=== PATIENT | female | born 1990 | race African-American/Black ===

== ENCOUNTER 2018-06-04 15:06 | Inpatient (IN) | payer OTHER, SELFPAY ==
[2018-06-04 15:54] VITALS: BMI 44.9
[2018-06-04] MEDS ORDERED: Labetalol HCl 100 MG/20 ML VIAL SLOW IVP PRN (16:29)
[2018-06-04 17:04] LABS: Hemoglobin 10.2 g/dL (12.0-16.0); Mean Corpuscular HGB CONC 34.1 g/dL (32.0-36.0); Mean Corpuscular Volume 79.1 fL (78.0-98.0); Mean Platelet Volume 8.3 fL (7.4-10.4); Platelet Count 183 thou/uL (130-400); RBC Distribution Width 13.8 % (11.5-14.5); Red Blood Cell (RBC) Count 3.76 mill/uL (4.20-5.40); White Blood Cell (WBC) Count 5.1 thou/uL (4.8-10.8)
[2018-06-04 17:23] LABS: ALT (SGPT) 10 U/L (8-55); AST (SGOT) 20 U/L (5-34); Alkaline Phosphatase 245 U/L (40-150); Anion Gap 11 mmol/L (10-20); BUN (Urea Nitrogen) 7 mg/dL (7.0-18.7); Bilirubin, Total 0.5 mg/dL (0.2-1.2); Calc. Creatinine Clearance 196 mL/min (70-130); Calcium 8.8 mg/dL (7.8-10.44); Carbon Dioxide 22 mmol/L (22-29); Chloride 108 mmol/L (98-107); Estimated GFR-MDRD Greater than 90; Glucose 75 mg/dL (70-105); LDH 233 U/L (125-220); Potassium 3.9 mmol/L (3.5-5.1); Sodium 137 mmol/L (136-145); Uric Acid 5.8 mg/dL (2.6-6.0)
[2018-06-04] MEDS ORDERED: Ondansetron HCl/PF 4 MG/2 ML Vial IVP PRN ×2 (17:50→20:50)
[2018-06-04] MEDS ORDERED: Calcium Gluc 4.6 MEQ/10 ML (100 MG/ML) SLOW IVP PRN (17:51)
[2018-06-04] MEDS ORDERED: Magnesium Sulfate 20 GM/WATER 500 ML BAG IVPB SCH (18:00)
[2018-06-04] MEDS ORDERED: Lactated Ringer's 1,000 ML IV SCH (18:00)
[2018-06-04] MEDS ORDERED: Magnesium Sulfate 20 gm/500 ml 20 GM/500 ML BAG IVPB SCH (18:00)
[2018-06-04] MEDS ORDERED: CEFAZOLIN/Water 2 GM/20 ML SYRINGE SLOW IVP SCH (18:15)
[2018-06-04] MEDS ORDERED: Bicitra 30 ML UDCUP PO SCH (18:15)
[2018-06-04 18:38] LABS: Syphilis Antibody Nonreactive (Nonreactive); Syphilis Antibody Index 0.04 S/CO (<1.00 Non-Reactive)
[2018-06-04 18:39] LABS: HIV (1/2) Antibody/Antigen Non-Reactive (NonReactive); Hep B Surf Ag Non-Reactive S/CO (NonReactive)
[2018-06-04] MEDS ORDERED: Oxytocin 10 UNITS/ML VIAL ONE ×2 (18:55→20:01)
[2018-06-04] MEDS ORDERED: Lidocaine 1% PF 5 ML VIAL ONE (18:55)
[2018-06-04] MEDS ORDERED: Bupivacaine 0.75% W/DEXTROSE 8.25% 2 ML AMP ONE (18:55)
[2018-06-04] MEDS ORDERED: PHENYLEPHRINE-NS 100 MCG/ML 10 ML SYRINGE ONE (18:55)
[2018-06-04] MEDS ORDERED: Ketorolac Tromethamine 30 MG/ML VIAL ONE (18:55)
[2018-06-04] MEDS ORDERED: Ondansetron HCl/PF 4 MG/2 ML Vial ONE (18:55)
[2018-06-04] MEDS ORDERED: Morphine PF 1 MG/ML SYR ONE (18:56)
[2018-06-04] MEDS: Lactated Ringer's 1,000 ML IV SCH (19:00)
[2018-06-04] MEDS ORDERED: Labetalol HCl 100 MG/20 ML VIAL ONE (19:16)
[2018-06-04] MEDS ORDERED: Carboprost 250 MCG/ML AMP ONE (20:02)
[2018-06-04] MEDS ORDERED: Fentanyl 100 MCG/2 ML VIAL ONE (20:27)
--- NOTE | 2018-06-04 20:30 | HP ---
DATE OF ENCOUNTER: 06/04/2018 PRIMARY HALAL BUTCHER: Dr. Aurelio Painting. CHIEF COMPLAINT: Elevated blood pressures. HISTORY OF PRESENT ILLNESS: The patient is a 28-year-old female referred from clinic for blood press ure evaluation. The patient reports that in the clinic, she had blood pressures as high as the 180s. She reports a mild headache when she is on her side. Otherwise, denies any headache, denies chest pain, shortness of breath. Denies recent illness, fever, or fall. Denies nausea, vomiting, diarrhea , or constipation. Denies vaginal bleeding, leakage of fluid. Denies any new rashes. Denies hip pr oblems or knee problems. PAST MEDICAL HISTORY: Negative. PAST SURGICAL HISTORY: She has had 1 prior and was hospitalized for several weeks for pree clampsia. ALLERGIES: No known drug allergies. MEDICATIONS: vitamins. SOCIAL HISTORY: Denies drug, alcohol or tobacco use. PHYSICAL EXAMINATION: VITAL SIGNS: Initial blood pressure 189/100 and has ranged from 120s to 180s systolic and 70s to 90s diastolic, heart rate in the 70s to 80s, satting 100% on room air, respiratory rate 18-20. GENERAL: She appears to be in no acute distress. She is alert and oriented, cooperative and pleasan t to interact with. HEAD: Normocephalic, atraumatic. LUNGS: Clear to auscultation bilaterally. CARDIOVASCULAR: Heart has regular rate and rhythm. ABDOMEN: Soft and nontender, no right upper quadrant tenderness to palpation. EXTREMITIES: Nontender and edematous, 1+ edema. HEART TRACING: Fetus is in the 140s with moderate long-term variability, positive 15 x 15 acce lerations, no decelerations. Tocometer shows some irritability, but no contraction pattern. LABORATORY DATA: White count of 5.1, hemoglobin of 10.2, hematocrit 29.8, platelets 193,000. Sodium 137, potassium 3.9, chloride 108, BUN 7, creatinine 0.8. Uric acid of 5.8, AST of 20, ALT of 10. L DH of 233. Urine protein is pending, but was reported 2+ in clinic. ASSESSMENT AND PLAN: The patient is a 28-year-old female with an intrauterine at 36 weeks and 5 days, presenting with severe range blood pressures recurrent over the last hour or two. The pa rohit has a history of preeclampsia with her previous requiring hospitalization for several weeks. The patient is a prior section, desires a repeat this with Dr. Painting findings h ere with my evaluation. The patient has had nothing to eat since earlier this morning at 11:00 and p rogelio is to move forward with . Her primary OB will be coming for delivery.
[2018-06-04] MEDS ORDERED: HYDROmorphone 2 MG/ML VIAL SLOW IVP PRN (20:50)
[2018-06-04] MEDS ORDERED: Meperidine HCl/PF 25 MG/ML VIAL SLOW IVP PRN (20:50)
[2018-06-04] MEDS ORDERED: Ketorolac Tromethamine 30 MG/ML VIAL IVP SCH (21:00)
[2018-06-04] MEDS ORDERED: Varicella virus, LIVE 0.5 ML VIAL SC ONE (21:13)
[2018-06-04] MEDS ORDERED: Adacel (T-DAP) 0.5 ML VIAL IM ONE (21:13)
[2018-06-04] MEDS ORDERED: Bisacodyl 10 MG SUPP PR PRN (21:13)
[2018-06-04] MEDS: Magnesium Sulfate 20 gm/500 ml 20 GM/500 ML BAG IVPB SCH (21:20)
[2018-06-04] MEDS: Docusate Calcium (SURFAK) 240 MG CAP PO SCH (21:34)
[2018-06-05] MEDS: HYDROcodone/Acetaminophen 5/325 mg Tablet PO PRN ×2 (03:50→18:45)
[2018-06-05] MEDS: Lactated Ringer's 1,000 ML IV SCH ×2 (05:05→17:09)
[2018-06-05] MEDS: Magnesium Sulfate 20 gm/500 ml 20 GM/500 ML BAG IVPB SCH ×2 (05:42→16:05)
[2018-06-05] MEDS: Ibuprofen 800 MG TAB PO SCH ×4 (05:49→21:39)
[2018-06-05] MEDS: Docusate Calcium (SURFAK) 240 MG CAP PO SCH (17:36)
--- NOTE | 2018-06-05 19:47 | PDOC.PP ---
Post Progress Note PO intake tolerated: yes Vital Signs (12 hours) Temp Pulse Resp 06/05/18 08:00 98.0 F 86 18 Weight Weight 262 lb - Physical Examination General: NAD Cardiovascular: no m/r/g Respiratory: clear to auscultation bilaterally Abdominal: no distention, appropriately TTP Extremities: negative homans (B) Skin: CS incision dry & intact, no rash Neurological: no gross focal deficits Psychiatric: A&Ox3, normal affect (Doing very well. Will DC Mahnesium and transition to po Nifedipine for BP Controll. Normal post care after that.) Result Diagrams: 06/04/18 16:50 06/04/18 16:50 Additional Labs: Post Labs Blood Type B POSITIVE 06/04/18 17:45 Hep Bs Antigen Non-Reactive S/CO (NonReactive) 06/04/18 17:45
[2018-06-05] MEDS ORDERED: NIFEdipine XL 60 MG TAB PO SCH (21:30)
[2018-06-06] MEDS: Lactated Ringer's 1,000 ML IV SCH ×4 (03:19→15:38)
[2018-06-06] MEDS: Docusate Calcium (SURFAK) 240 MG CAP PO SCH ×3 (03:23→21:42)
[2018-06-06] MEDS: HYDROcodone/Acetaminophen 5/325 mg Tablet PO PRN ×3 (03:55→23:28)
[2018-06-06] MEDS: Ibuprofen 800 MG TAB PO SCH ×3 (05:41→21:42)
[2018-06-06] MEDS: NIFEdipine XL 60 MG TAB PO SCH (08:59)
--- NOTE | 2018-06-06 16:16 | PDOC.PP ---
Post Progress Note Post Day #: Patient is doing very well, ambulating well, regular diet, no complaints. PO intake tolerated: yes Flatus: yes Ambulation: yes Vital Signs (12 hours) Temp Pulse Resp BP BP 06/06/18 12:13 98.0 F 103 H 20 138/79 06/06/18 08:59 90 144/85 H 06/06/18 08:19 98.1 F 90 20 144/85 H 06/06/18 07:55 98.1 F 90 20 Weight Weight 262 lb - Physical Examination General: NAD Cardiovascular: no m/r/g, RRR Respiratory: clear to auscultation bilaterally, non-labored breathing Abdominal: lochia, no distention, appropriately TTP Extremities: negative homans (B) Skin: CS incision dry & intact, no rash Neurological: no gross focal deficits Psychiatric: A&Ox3, normal affect Result Diagrams: 06/04/18 16:50 06/04/18 16:50 Additional Labs: Post Labs Blood Type B POSITIVE 06/04/18 17:45 Hep Bs Antigen Non-Reactive S/CO (NonReactive) 06/04/18 17:45
--- NOTE | 2018-06-06 18:51 | OP ---
DATE OF PROCEDURE: 06/04/2018 PREOPERATIVE DIAGNOSES: 1. Severe preeclampsia. 2. Intrauterine at 36 weeks and 5 days with gestational hypertension, obesity, previous ce sarean section, breech presentation. POSTOPERATIVE DIAGNOSES: 1. Severe preeclampsia. 2. Intrauterine at 36 weeks and 5 days with gestational hypertension, obesity, previous ce sarean section, breech presentation. PROCEDURE: Repeat low-transverse section. SURGEON: Aurelio Painting MD HOSPITAL PERSONNEL DIRECTOR: Dr. Wheatley. QUANTITATIVE BLOOD LOSS: 790 mL. FINDINGS: Viable male weighing 3090 grams or 6 pounds 13 ounces. Apgars we have 6 at 1 minut e, 5 at 5 minutes, and 8 at 10 minutes. COMPLICATIONS: None. DETAILS OF THE PROCEDURE: The patient was consented and taken back to the operating room where spina l anesthesia was found to be adequate. She was then prepped and draped in the normal sterile fashion . A time out was performed by the entire operative team. The incision was then marked with a marking pen tested using sharp pickups. An incision was then made with a scalpel. The incision was carried through the adipose tissue down to the underlying rectus fascia using both sharp dissection as well as cautery. Once the fascia was identified, it was incised in the midline and then the fascial incis ion was carried through in both lateral directions using sharp as well as cautery dissection techniqu es. Next, the superior aspect of the rectus fascia was grasped with 2 Jethro clamps which was tented up and the rectus muscles were dissected off using blunt dissection as well as cautery dissection. Similarly, the inferior aspect of the fascial incision was grasped with 2 Jethro clamps, tented up an d the rectus muscles were dissected off bluntly as well as sharply. Next, the rectus muscles were se parated in the midline and the peritoneum identified. The peritoneum was then carefully grasped with two hemostats and entered sharply. The peritoneal incision was extended superiorly and inferiorly a nd bladder blade was placed in the lower abdomen. At this point, the uterus was identified and the b ladder flap was then developed using pickups with teeth as well as Metzenbaum scissors in both latera l directions. The bladder flap was then dissected downwards using the paddle dyeing machine operator's finger as well as M etzenbaum scissors. The bladder blade was replaced. The lower uterine segment was then identified a nd entered sharply using a clean scalpel. The uterine incision was then dissected downwards until th in layer of muscle remained and this was entered bluntly using a hemostat to avoid any injury to the baby. The uterine incision was then stretched using two fingers in both lateral directions. An amniotomy was performed artificially using a hemostat and the baby was delivered using fundal pres sure in a gentle fashion. Once out, the baby's mouth and nose were bulb suctioned, cord clamped and cut, and the baby was handed to waiting attendants. Next, the uterus was exteriorized, cleared of al l clots and debris and the uterine incision was repaired with #1 Monocryl in a running locking fashio n. A second suture of the same type was used to obtain complete hemostasis at the uterine incision. The bladder flap was reapproximated using 3-0 Monocryl. Next, patient's left and right adnexa were inspected and appeared to be within normal limits. The posterior cul-de-sac was blotted dry and hemo stasis assured. One more look at the uterine incision demonstrated hemostasis. Next, the uterus was replaced back within the abdomen. The peritoneum was reapproximated using 2-0 Monocryl without diff iculty. The rectus muscles were then allowed to come back together and 0 chromic was used to aid in reapproximation of the muscle as necessary. The rectus fascia was then reapproximated in a running f ashion using 0 Vicryl suture. The adipose tissue was then examined and appeared to be well approxima heidi without any obvious separations. Finally, the skin was reapproximated with 3-0 Monocryl on a Martin th needle without difficulty and Dermabond adhesive was applied to the skin. Once the glue was dry, the drapes were removed and the patient was transferred to an ambulatory bed where she was taken to [facility] awake and in stable condition. Sponge, lap, and needle counts were correct x3.
[2018-06-07] MEDS: Lactated Ringer's 1,000 ML IV SCH ×3 (05:31→16:04)
[2018-06-07] MEDS: Ibuprofen 800 MG TAB PO SCH ×3 (05:33→21:05)
[2018-06-07] MEDS: NIFEdipine XL 60 MG TAB PO SCH (10:21)
[2018-06-07] MEDS: Docusate Calcium (SURFAK) 240 MG CAP PO SCH ×2 (10:22→21:05)
[2018-06-07] MEDS: HYDROcodone/Acetaminophen 5/325 mg Tablet PO PRN ×2 (12:14→21:05)
[2018-06-08] MEDS: Lactated Ringer's 1,000 ML IV SCH ×2 (05:07→09:45)
[2018-06-08 08:19] VITALS: BP 145/89; TEMP 98.5
[2018-06-08] MEDS: NIFEdipine XL 60 MG TAB PO SCH (09:29)
[2018-06-08] MEDS: Ibuprofen 800 MG TAB PO SCH (09:29)
[2018-06-08] MEDS: Docusate Calcium (SURFAK) 240 MG CAP PO SCH (09:29)
== END 2018-06-08 12:50 | disposition home or self-care (01) | DRG 766 ==
LOC: L&D/OP 15:06 → L&D 18:17 → 3SW 06-05 22:46
PROVIDERS: ADMIT Obstetrics & Gynecology; ATTEND Obstetrics & Gynecology
PROC: 10D00Z1 Extraction of Products of Conception, Low, Open Approach (ICD-10-PCS; principal; 2018-06-04)
DX: O14.14 Severe pre-eclampsia complicating childbirth (principal); Z3A.36 36 weeks gestation of pregnancy; O34.211 Maternal care for low transverse scar from previous cesarean delivery; Z37.0 Single live birth
CPT/HCPCS: 36415; 51702; 80053; 81003; 82570; 83615; 84156; 84550; 85027; 86780; 86850; 86900; 86901; 87340; 87389; 90715; 99285; J0131; J1885; J2001; J2274; J2405; J2590; J3010; J3475; J3490

== ENCOUNTER 2023-05-24 11:04 | Outpatient (CLI) | payer BC, OTHER | END 2023-05-24 11:05 | disposition home or self-care (01) | LOC: DTY/OP 11:04 | PROVIDERS: ATTEND Surgery | DX: E66.01 Morbid (severe) obesity due to excess calories (principal) | CPT/HCPCS: 97802 ==

== ENCOUNTER 2023-08-09 07:50 | Outpatient (CLI) | payer BC ==
[2023-08-09 08:38] LABS: #Eosinphils 0.1 10x3/uL (0.0-0.5); #Monocytes 0.4 10x3/uL (0.0-1.1); #Neutrophils 2.8 10x3/uL (1.5-8.4); %Basophils 0.8 % (0.0-2.0); %Eosinophils 1.2 % (0.0-6.0); %Lymphocytes 34.1 % (18.0-47.0); %Monocytes 8.8 % (0.0-10.0); %Neutrophils 54.9 % (40.0-75.0); Hematocrit 39.7 % (34.9-44.5); Hemoglobin 12.7 g/dL (12.0-15.5); Mean Corpuscular Hemoglobin 25.2 pg (27.0-33.0); Mean Corpuscular Volume 78.9 fl (81.6-98.3); Mean Platelet Volume 9.5 fl (7.4-10.4); Platelet Count 328 10x3/uL (150-450); RBC Distribution Width 16.2 % (11.5-14.5); Red Blood Cell (RBC) Count 5.03 10x6/uL (3.90-5.03)
[2023-08-09 08:45] LABS: Anion Gap 15 mmol/L (10-20); BUN (Urea Nitrogen) 9 mg/dL (7.0-18.7); Calc. Creatinine Clearance 0 mL/min (70-130); Calcium 9.5 mg/dL (7.8-10.44); Carbon Dioxide 23 mmol/L (22-29); Chloride 106 mmol/L (98-107); Estimated GFR 97; Glucose 105 mg/dL (70-105); Potassium 4.1 mmol/L (3.5-5.1); Sodium 140 mmol/L (136-145)
== END 2023-08-09 07:51 | disposition home or self-care (01) ==
LOC: LABBT 07:50
PROVIDERS: ATTEND Surgery
DX: Z01.812 Encounter for preprocedural laboratory examination (principal); E66.01 Morbid (severe) obesity due to excess calories
CPT/HCPCS: 80048; 85025

== ENCOUNTER 2023-08-09 08:00 | Inpatient (IN) | payer BC ==
[2023-08-09 08:18] VITALS: BMI 41.8
[2023-08-22] MEDS ORDERED: Bupivacaine 0.25% HCL 30 ML VIAL ONE (06:52)
[2023-08-22] MEDS ORDERED: EPINEPHrine 1 MG/ML VIAL ONE (06:52)
[2023-08-22] MEDS ORDERED: Propofol 500 MG/50 ML VIAL ONE (07:00)
[2023-08-22] MEDS ORDERED: fentaNYL PF 100 MCG/2 ML SYRINGE ONE (07:03)
[2023-08-22] MEDS ORDERED: Ketamine In 0.9 % NaCl 50 MG/5 ML SYRINGE ONE (07:03)
[2023-08-22] MEDS ORDERED: Rocuronium Bromide 10 MG/ML (10ML VIAL) ONE ×2 (07:04→07:15)
[2023-08-22] MEDS ORDERED: Lidocaine 1% PF 5 ML VIAL ONE ×2 (07:04→07:15)
[2023-08-22] MEDS ORDERED: PROPOFOL 20 ML ONE (07:04)
[2023-08-22] MEDS ORDERED: Ondansetron PF 4 MG/2 ML Vial ONE ×3 (07:15→16:04)
[2023-08-22] MEDS ORDERED: Ketorolac Tromethamine 30 MG/ML VIAL ONE ×2 (07:15→09:10)
[2023-08-22] MEDS ORDERED: PROPOFOL 200 MG/20 ML VIAL ONE (07:15)
[2023-08-22] MEDS ORDERED: Esmolol 100 MG/10 ML VIAL ONE ×2 (07:15→08:55)
[2023-08-22] MEDS ORDERED: Dexamethasone 20 MG/5 ML VIAL ONE ×2 (07:15→08:30)
[2023-08-22] MEDS ORDERED: PHENYLEPHRINE-NS 100 MCG/ML 10 ML SYRINGE ONE ×2 (07:15→08:44)
[2023-08-22] MEDS ORDERED: Scopolamine 1 mg/72 hour Patch ONE (07:22)
[2023-08-22] MEDS ORDERED: CEFAZOLIN 2 GM VIAL ONE (08:00)
[2023-08-22] MEDS ORDERED: Sodium Chloride 0.9% 100 ML ONE ×2 (08:01→09:21)
[2023-08-22] MEDS ORDERED: Glycopyrrolate 0.2 MG/ML 5 ML SYRINGE ONE (08:33)
[2023-08-22] MEDS ORDERED: SUGAMMADEX SODIUM 200 MG/2 ML VIAL ONE (09:10)
[2023-08-22] MEDS ORDERED: Naloxone HCl 0.4 mg/ml Vial IV PRN (09:11)
[2023-08-22] MEDS ORDERED: diphenhydrAMINE 50 MG/ML VIAL IVP PRN ×2 (09:11→10:10)
[2023-08-22] MEDS ORDERED: diphenhydrAMINE 25 MG CAP PO PRN (09:11)
[2023-08-22] MEDS ORDERED: diphenhydrAMINE 50 MG/ML VIAL IM PRN (09:11)
[2023-08-22] MEDS ORDERED: Ondansetron HCl/PF 4 MG/2 ML Vial IVP PRN (09:11)
[2023-08-22] MEDS ORDERED: Promethazine HCl 25 MG/ML VIAL IM PRN ×3 (09:11→10:10)
[2023-08-22] MEDS ORDERED: FENTANYL 500 MCG/10 ML VIAL 2,000 MCG in Sodium Chloride 0.9% 60 ML IV PRN (09:11)
[2023-08-22] MEDS ORDERED: Ondansetron PF 4 MG/2 ML Vial IVP PRN ×2 (09:11→10:10)
[2023-08-22] MEDS ORDERED: Communication Order-Pharmacy FS SCH (09:15)
[2023-08-22] MEDS ORDERED: Dexmedetomidine 200 MCG/2 ML VIAL ONE (09:20)
[2023-08-22] MEDS ORDERED: fentaNYL 50 mcg/mL 1 mL Vial ONE (09:23)
[2023-08-22] MEDS ORDERED: Glucagon 1 MG/ML KIT IM PRN (10:10)
[2023-08-22] MEDS ORDERED: hydrALAZINE 20 MG/ML VIAL SLOW IVP PRN (10:10)
[2023-08-22] MEDS ORDERED: Ipratropium/Albuterol 3 ML NEB NEB PRN (10:10)
[2023-08-22] MEDS ORDERED: Hydrocodone-Acetamin 15 ML UDCUP PO PRN (10:10)
[2023-08-22] MEDS ORDERED: Dextrose 5% in Water 1,000 ML IV PRN (10:10)
[2023-08-22] MEDS ORDERED: Dextrose 50% Abboject 50 ML SYRINGE SLOW IVP PRN (10:10)
[2023-08-22] MEDS ORDERED: D5 1/2 NS w/20 mEq KCL 1,000 ML ONE (11:48)
[2023-08-22] MEDS: D5 1/2 NS w/20 mEq KCL 1,000 ML IV SCH ×3 (11:50→19:34)
[2023-08-22] MEDS ORDERED: FLU VACC QS2023-24(6MOS UP)/PF 60 MCG/0.5 ML SYRINGE IM ONE (17:15)
[2023-08-23 05:26] LABS: #Monocytes 0.8 thou/uL (0.11-0.59); #Neutrophils 10.7 thou/uL (1.40-6.50); %Basophils 0.2 % (0.0-1.0); %Eosinophils 0.3 % (0.0-10.0); %Lymphocytes 13.1 % (21.0-51.0); %Monocytes 5.9 % (0.0-10.0); %Neutrophils 80.1 % (42.0-75.0); Hematocrit 34.8 % (36.0-47.0); Hemoglobin 11.2 g/dL (12.0-16.0); Mean Corpuscular HGB CONC 32.2 g/dL (32.0-36.0); Mean Corpuscular Hemoglobin 25.5 pg (27.0-31.0); Mean Corpuscular Volume 79.3 fl (78.0-98.0); Mean Platelet Volume 9.7 fL (7.4-10.4); Platelet Count 274 10x3/uL (130-400); RBC Distribution Width 16.3 % (11.5-14.5); Red Blood Cell (RBC) Count 4.39 mill/uL (4.20-5.40); White Blood Cell (WBC) Count 13.3 10x3/uL (4.8-10.8)
[2023-08-23 05:53] LABS: Anion Gap 11 mmol/L (10-20); BUN (Urea Nitrogen) 5 mg/dL (7.0-18.7); Calc. Creatinine Clearance 183 mL/min (70-130); Calcium 8.6 mg/dL (7.8-10.44); Carbon Dioxide 22 mmol/L (22-29); Chloride 105 mmol/L (98-107); Estimated GFR 109; Glucose 109 mg/dL (70-105); Sodium 134 mmol/L (136-145)
[2023-08-23] MEDS: D5 1/2 NS w/20 mEq KCL 1,000 ML IV SCH (08:10)
[2023-08-23] MEDS ORDERED: Pantoprazole 40 MG VIAL IVP SCH (09:00)
[2023-08-23] MEDS ORDERED: Hydrocodone-Acetamin 15 ML UDCUP PO PRN (10:22)
[2023-08-23 13:17] VITALS: BP 91/51; TEMP 98.5
== END 2023-08-23 13:00 | disposition home or self-care (01) | DRG 621 ==
LOC: SURG A 08-22 06:03 → SURG B 08-22 16:30
PROVIDERS: ADMIT Surgery; ATTEND Surgery
PROC: 0DB64Z3 Excision of Stomach, Percutaneous Endoscopic Approach, Vertical (ICD-10-PCS; principal; 2023-08-22)
PROC: 8E0W4CZ Robotic Assisted Procedure of Trunk Region, Percutaneous Endoscopic Approach (ICD-10-PCS; 2023-08-22)
DX: E66.01 Morbid (severe) obesity due to excess calories (principal); Z68.41 Body mass index [BMI] 40.0-44.9, adult; Z90.710 Acquired absence of both cervix and uterus; Z98.890 Other specified postprocedural states
CPT/HCPCS: 36415; 80048; 85025; 88307; 88342; C9113; J0171; J1100; J1650; J1885; J2405; J2704; J3010; J3480; J3490; S0020